=== PATIENT | female | born 1975 | race Caucasian/White ===

== ENCOUNTER 2017-02-02 05:18 | Inpatient (IN) ==
[2017-01-29 10:57] LABS: MANUAL DIFF NEEDED? NO
[2017-01-29 11:04] LABS: BASO% 0.4 % (0.0-0.8); EOS# 0.12 X1000 (0.0-0.7); EOS% 2.2 % (0.0-10.0); HEMATOCRIT 40.8 % (37.0-47.0); HEMOGLOBIN 13.5 g/dL (12.0-16.0); IMM GRAN# 0.02 X1000 (0.0-0.04); IMM GRAN% 0.4 % (0.0-0.5); LYMPH# 1.74 X1000 (1.2-3.4); LYMPH% 32.5 % (20.5-51.1); MCH 29.9 PG (27-31); MCHC 33.1 g/dL (33-37); MCV 90.5 FL (81-99); MONO# 0.38 X1000 (0.11-0.59); MONO% 7.1 % (1.7-9.3); MPV 9.1 FL (7.4-10.4); NEUT% 57.4 % (42.2-75.2); PLT 265 X1000 (130-400); RBC 4.51 XMIL (4.2-5.4)
--- NOTE | 2017-02-01 15:11 | HISTORY AND PHYSICAL ---
HISTORY: The patient is a 41-year-old female who has been followed by Dr. Marybeth Martin in [place], who is having problems with increasing symptomatic pelvic organ prolapse. On evaluation she was found to have POP-Q stage IV prolapse. Patient is wishing to proceed with surgical intervention. The risks and benefits of supracervical hysterectomy with abdominal sacrocolpopexy and midurethral sling were explained at length. We also discussed possible posterior compartment defect repair after completion of the reconstruction. She understands and wishes to proceed with surgical intervention. PAST MEDICAL HISTORY: Positive for depression. PAST SURGICAL HISTORY: Negative. PRESCHOOL TEACHER'S ASSISTANT HISTORY: She is noted to be a para 3-0-1-3 with TAB x1. ALLERGIES: No known drug allergies. CURRENT MEDICATIONS: Celexa 10 and Klonopin 1. FAMILY HISTORY: Noncontributory. SOCIAL HISTORY: Positive for tobacco, stopped in 1995. REVIEW OF SYSTEMS: Negative except as above. PHYSICAL EXAMINATION: GENERAL: BMI is 28.89. HEENT: Normocephalic, atraumatic. PERRLA, EOMI. NECK: No thyromegaly. CV: Regular rate and rhythm without murmur, gallop, or rub. PULMONARY: Clear to auscultation and percussion. ABDOMEN: Soft. : Shows POP-Q stage IV prolapse. Point C is +4, point D is +3, AA +1, BA +2, AP 0, BP +1, GH is 9, and TVL is 11. NEUROLOGIC: Afocal. EXTREMITIES: Without clubbing, cyanosis, or edema. ASSESSMENT AND PLAN: Patient admitted at this time for supracervical hysterectomy, abdominal sacrocolpopexy, midurethral sling, and possible posterior compartment defect repair. cc: Alvaro Conner MD
[2017-02-02] MEDS ORDERED: REGLAN ONE (05:48)
[2017-02-02] MEDS ORDERED: PEPCID ONE (05:48)
[2017-02-02] MEDS ORDERED: TRANSDERM-SCOP ONE (05:48)
[2017-02-02] MEDS ORDERED: VALIUM ONE (05:49)
[2017-02-02] MEDS ORDERED: KEFZOL 1 GM/D5W 1 GM/50 ML IVPB ONE (05:49)
[2017-02-02] MEDS ORDERED: LR 1,000 ML ONE ×2 (05:49→13:13)
[2017-02-02] MEDS ORDERED: D10W 1,000 ML ONE (06:40)
[2017-02-02] MEDS ORDERED: METROGEL-VAGINAL 0.75% GEL ONE (06:40)
[2017-02-02] MEDS ORDERED: MARCAINE 0.25% PF/EPI 1:200,000 ONE ×2 (06:40→10:15)
[2017-02-02] MEDS ORDERED: SODIUM CHLORIDE 0.9% ONE (06:40)
[2017-02-02 08:31] LABS: URINE MICRO REVIEW NEEDED? NO; URINE SOURCE CATH
[2017-02-02 08:33] LABS: BILIRUBIN URINE NEGATIVE (NEGATIVE); BLOOD URINE NEGATIVE (NEGATIVE); COLOR YELLOW; GLUCOSE URINE NEGATIVE (NEGATIVE); LEUKOCYTES URINE NEGATIVE (NEGATIVE); NITRITE URINE NEGATIVE (NEGATIVE); PH URINE 7.5; PROTEIN URINE NEGATIVE (NEGATIVE); SP GRAVITY URINE 1.019; TURBIDITY URINE CLEAR (CLEAR); UROBILINOGEN URINE NORMAL (NORMAL)
[2017-02-02 08:35] LABS: UR EPITHELIAL CELLS <10 /HPF (<10); URINE BACTERIA NEGATIVE /HPF; URINE RBC <10 /HPF (<10); URINE WBC <10 /HPF (<10)
[2017-02-02] MEDS ORDERED: MORPHINE ONE ×2 (10:56→11:07)
[2017-02-02] MEDS ORDERED: NEOSTIGMINE ONE (11:06)
[2017-02-02] MEDS ORDERED: ZOFRAN ONE (11:07)
[2017-02-02] MEDS ORDERED: XYLOCAINE-MPF 2% ONE (11:07)
[2017-02-02] MEDS ORDERED: LR 2,000 ML ONE (11:07)
[2017-02-02] MEDS ORDERED: TORADOL ONE (11:07)
[2017-02-02] MEDS ORDERED: QUELICIN (DOSE) ONE (11:07)
[2017-02-02] MEDS ORDERED: DECADRON ONE (11:07)
[2017-02-02] MEDS ORDERED: PHENERGAN ONE (11:07)
[2017-02-02] MEDS ORDERED: ROBINUL ONE (11:07)
[2017-02-02] MEDS ORDERED: NORCURON ONE (11:07)
[2017-02-02] MEDS ORDERED: VERSED ONE (11:09)
[2017-02-02] MEDS ORDERED: FENTANYL ONE (11:09)
[2017-02-02] MEDS ORDERED: DIPRIVAN 1% ONE (11:09)
--- NOTE | 2017-02-02 13:14 | OPERATIVE NOTE ---
PROCEDURE DATE: 02/02/2017 PREOPERATIVE DIAGNOSIS: Symptomatic pelvic organ prolapse. POSTOPERATIVE DIAGNOSIS: Pelvic organ prolapse quantification stage 4 prolapse. PROCEDURE: DaVinci supracervical hysterectomy, abdominal sacrocolpopexy, bilateral salpingectomy, mid urethral sling with Obtryx and posterior compartment defect repair. SURGEON: Dr. Alvaro Conner. ANESTHESIA: General. ESTIMATED BLOOD LOSS: 75 mL. HISTORY: The patient is a 41-year-old female who is referred to me by Dr. Marybeth Martin, who was having increasing symptomatic pelvic organ prolapse. She refused pessary management and wished to proceed with surgical intervention. OPERATIVE FINDINGS: The patient was found to have normal intra-abdominal anatomy. Both ovaries appeared to be within normal limits. Appendix and appendiceal bed was normal. Upper abdominal examination was normal, as well. Vaginally, she was found have POP-Q stage 4 prolapse with the cervix approximately 6 cm beyond the hymenal ring. OPERATIVE PROCEDURE: Patient was taken to the operating room, placed in supine position. After adequate general anesthesia was obtained, [facility], and her abdomen and vagina were prepped and draped in the usual fashion. Umbilical incision was made after infiltration of 0.25% Marcaine with epinephrine. A 12 mm port and sheath were introduced through this incision into the abdominal cavity. Pelvic contents were visualized. Therefore, insufflation with CO2 to an intra-abdominal pressure of 14 was performed. At this time, the patient's left-sided ports were placed in typical fashion under direct visualization with the laparoscope after infiltration with of 0.25% Marcaine with epinephrine, and then the right-sided ports were placed in a similar fashion for sacrocolpopexy. Assistance port was placed in the right upper quadrant. All ports were placed under direct visualization. At this time, vaginally we placed EEA sizer within the vagina and Wright catheter was placed. We removed a large amount of stool from the anus and the distal colon area just because the patient stated she was having marked problems with constipation, and she did have a large amount of stool that had to be removed so that we could place the EEA sizer. We then did this. Robot was docked in the usual fashion. Hot scissors were in the right hand, bipolar gyrus in the left hand, and the third arm utilized a single-tooth tenaculum. We initially grasped the uterus and elevated it out of the pelvis, exposing the left broad ligament. We elevated the fallopian tube from the fimbria and then began in a clamp, cauterize, and cut fashion through the mesosalpinx, and then down through the round ligament. We then clamped and cauterized the uteroovarian pedicle and continued down the broad ligament in a clamp, cauterize, and cut fashion to the peritoneal reflection from the bladder. This was then performed on the contralateral side in a similar fashion. At this time, we dissected the bladder off the anterior portion of the uterus, dropping our ureters lower, and we then clamped and cauterized the uterine vessels on both sides. Patient was noted to be very vascular and had a large amount of varicosities through the entire mesosalpinx region as well as through the broad ligament. We then continued with our dissection anteriorly and went approximately 8 to 10 cm beyond the cervical stump towards the urethrovesical neck. Based on the position of the Wright catheter, we were within approximately 2 cm of the UV neck. We then turned our attention towards the posterior compartment defect dissection. We use both sizers to scissor open the space and then made our initial incision and dissected down again approximately 8-10 cm along the posterior vaginal wall in a similar fashion. At this time, we went to the sacral promontory and we deviated the colon laterally to expose the promontory, which was very easy to see. We opened this space up by elevating the peritoneum. We then cauterized the spinal vein on the right side to give us room to place the suture. The one we left intact. We then created our tunnel in typical fashion. The mesh was trimmed in the usual fashion and introduced into the abdomen. We now had 2 needle drivers in and we started in the anterior compartment. We placed approximately 14-16 sutures in the anterior compartment and across the anterior portion of the cervix. We had already extirpated the corpus of the uterus from the cervical stump and placed it in the appendiceal bed. We then continued with the posterior arm of the mesh and placed it across the small portion of the posterior cervix and then down the posterior vaginal wall, again placing approximately 12-14 sutures in this area as well. We brought the mesh up to the sacral promontory and placed 3 sutures through the mesh into the anterior longitudinal ligament, using the EEA sizers to appropriately position the cervix towards the sacral promontory. We trimmed off excessive mesh and we then began reperitonealizing. We used a V-Loc suture to reperitonealize throughout and had almost total covering of the mesh throughout, with just small areas of exposure. Copious amounts of irrigation was performed. Hemostasis was observed. Decision was made to terminate this portion of the procedure, so we were placed the morcellator in the assistance port site and morcellated the uterus, removing it in the typical fashion. We again reirrigated to ensure that we did not have any small pieces and essentially the uterus came out in approximately 4 or 5 large pieces. At this time, we then removed the morcellator and we used a Randolph Thomasen closure system to close the fascia in this area. We did have some bleeding in the subcuticular portion that we placed a 2.0 Vicryl ligature through to provide hemostasis. After completion of this, we then used the Randolph-Jason closure system on the umbilical port, as well. The remaining ports were removed under direct visualization with the laparoscope and the abdomen was deflated of CO2. Nursing services closed all 5 skin incisions with 4-0 Vicryl ligature in a subcuticular fashion. Vaginally, we turned our attention towards placement of the sling. We now had excellent anterior and apical support as well as proximal posterior support. We grasped the urethra proximally and distally, and injected approximately 8-10 mL of 0.25% Marcaine with epinephrine in the typical hydrodissection fashion. Sagittal incision was made. Metzenbaum scissors were utilized to dissect up towards the ischial pubic ramus. Based on the bony landmarks of this ramus as well as the insertion of the adductor longus, a stab incision was made on the left-hand side and a halo device was introduced through that incision. It was taken through the obturator membrane to the log chipper operator's finger and then directed out. The mesh was attached to it and it was retracted back through the skin. This was performed on the contralateral side in a similar fashion. Wright catheter had already been removed. Cystoscope was placed within the bladder. Bladder was filled with approximately 300 mL of D10. Both ureteral orifices were effluxing urine without difficulty. There was noted to be some trauma in the base of the bladder from the Wright bulb and from manipulation with the EEA Sizer. No other abnormalities were noted. Cystoscope was removed and a Anahi clamp was placed the mid urethral position. The tape was brought out with the Anahi clamp and blue tag was excised. The sheaths were easily removed. There was no tension on the mesh whatsoever. At this time, the mid urethral incision was closed with running 2-0 Vicryl ligature. We then turned our attention towards the posterior compartment. I did not feel that we had very good correction in the distal 4-6 cm of this area and we needed to plicate these muscles because of her difficulties with constipation, so we grasped the midline with Allis clamps and injected approximately 20-30 mL of 0.25% Marcaine diluted 50% with normal saline. We made a sagittal incision, and sharply and bluntly dissected laterally towards the levators. We then used 0 Vicryl ligature to plicate the levators across the midline in this area. This was easily done with a running suture. We then trimmed off approximately 2-3 cm of vaginal mucosa from each side and reapproximated the vaginal mucosa then with a running 2-0 Vicryl ligature. Hemostasis was observed at all sites. Sponge counts, instrument counts, and needle counts were correct x3. Wright catheter had been replaced. Vaginal pack was placed. Rectal examination was performed. There was no impingement or suture within the colon. Decision was made to terminate the procedure. The patient was taken out of the low adjustable stirrups. She was awakened and taken to the recovery room with vital signs stable. cc: Alvaro Conner MD
[2017-02-02] MEDS ORDERED: PHENERGAN IM PRN (15:11)
[2017-02-02] MEDS ORDERED: DEMEROL IM PRN (15:11)
[2017-02-02] MEDS ORDERED: ZOFRAN ODT PO PRN (15:11)
--- NOTE | 2017-02-02 17:08 | PROGRESS NOTE ---
DATE: 02/02/2017 TIME: Approximately 4:45 p.m. SUBJECTIVE: Patient is now approximately 6 hours after having robotic abdominal sacrocolpopexy, supracervical hysterectomy, mid urethral sling and posterior compartment defect repair. OBJECTIVE: Dressings are dry. She is alert and oriented x3. Her significant other and friend her in the room with her. Vital signs stable. Urine output was clear. PLAN: Routine postoperative care. We will discontinue vaginal pack and Wright in a.m. and undergo voiding trial. We will discharge in a.m. after completion of voiding trial. cc: Alvaro Conner MD
[2017-02-02] MEDS: PERIDEX MT SCH ×2 (17:54→21:22)
[2017-02-02] MEDS: COLACE PO SCH ×2 (17:54→21:22)
[2017-02-02] MEDS: TORADOL IV SCH ×2 (17:54→23:58)
[2017-02-02] MEDS: LR 1,000 ML IV SCH ×2 (17:55→21:22)
[2017-02-02] MEDS: CELEXA PO SCH (17:55)
[2017-02-02] MEDS ORDERED: KLONOPIN PO SCH (21:00)
[2017-02-02] MEDS: NORCO-5 PO PRN (22:27)
[2017-02-03] MEDS: TORADOL IV SCH ×2 (05:32→11:40)
[2017-02-03] MEDS: NORCO-5 PO PRN (05:32)
[2017-02-03] MEDS: LR 1,000 ML IV SCH ×2 (05:33→08:51)
--- NOTE | 2017-02-03 07:18 | DISCHARGE SUMMARY ---
ADMISSION DATE: 02/02/2017 DISCHARGE DATE: 02/03/2017 PRINCIPAL DIAGNOSIS: Pelvic organ prolapse. PROCEDURES: Da Lenora abdominal sacrocolpopexy, supracervical hysterectomy, mid urethral sling with Obtryx, posterior compartment defect repair, and bilateral salpingectomy. HISTORY: The patient is a 41-year-old female who was referred to me by Dr. Marybeth Martin who was having symptomatic pelvic organ prolapse with POP-Q stage 4 prolapse noted on examination. The patient refused pessary management. HOSPITAL COURSE: The patient underwent the above-stated procedure. Blood loss at that time was approximately 50 mL. Postoperative course has been uncomplicated. She is being discharged home after completion of her voiding trial. She is being discharged home with instructions for followup in 3 weeks. DISCHARGE MEDICATIONS: 1. [place] 5. 2. Toradol. 3. Colace. DISCHARGE INSTRUCTIONS: She was instructed in regular diet and decreased activity. cc: Alvaro Conner MD
[2017-02-03] MEDS: PERIDEX MT SCH (09:54)
[2017-02-03] MEDS: COLACE PO SCH (09:54)
[2017-02-03] MEDS: CELEXA PO SCH (09:54)
[2017-02-03 12:51] VITALS: BP 103/62
== END 2017-02-03 15:53 | disposition home or self-care (01) ==
LOC: OR 05:18 → 4N 05:18 → OBSVTOIN 14:57
PROVIDERS: ADMIT Obstetrics & Gynecology; ATTEND Obstetrics & Gynecology
PROC: GY.CYST (2017-02-02 06:53)